=== PATIENT | male | born 1940 | race Caucasian/White ===

== ENCOUNTER 2019-05-30 14:57 | Emergency (ER) | payer MEDICARE ==
[~2019-05-30] VITALS: Ht 167.6 cm; Wt 72.7 kg
[~2019-05-30 14:57] MED LIST: ALBU8.5H8 INH; ASPI-612 PO; DOCU100C40 PO; LOSA25TA96 PO; METO25TA6 PO; ROSU40TA PO; TAMS0.4C32 PO
--- NOTE | 2019-05-30 15:09 | NUR ---
Pt currently wearing Holter Monitor through Dr. Mckeon's office; being evaluated for bradycardia.
[2019-05-30] MEDS ORDERED: AMLO-93 PO (15:13)
[2019-05-30] MEDS ORDERED: LOSA50TA3 PO (15:13)
[2019-05-30 15:39] LABS: BASOPHILS % (AUTO) 0.5 % (0-1); EOSINOPHILS # (AUTO) 0.2 X10'3 (0-0.9); EOSINOPHILS % (AUTO) 3.2 % (0-6); HEMATOCRIT 44.2 % (42.0-52.0); HEMOGLOBIN 14.5 g/dl (14.0-17.9); LYMPHOCYTES # (AUTO) 1.7 X10'3 (1.1-4.8); LYMPHOCYTES % (AUTO) 27.6 % (21-51); MEAN CORPUSCULAR HEMOGLOBIN 31.2 PG (27.0-31.0); MEAN CORPUSCULAR HGB CONC 32.9 g/dL (33.0-36.5); MEAN CORPUSCULAR VOLUME 94.6 FL (78-98); MEAN PLATELET VOLUME 7.8 FL (7.4-10.4); MONOCYTES # (AUTO) 0.6 X10'3 (0-0.9); MONOCYTES % (AUTO) 9.7 % (2-12); NEUTROPHILS # (AUTO) 3.6 X10'3 (1.8-7.7); PLATELET COUNT 264 X10'3 (140-440); RED BLOOD COUNT 4.67 X10'6 (4.70-6.10); RED CELL DISTRIBUTION WIDTH 13.7 % (11.5-14.5); WHITE BLOOD COUNT 6.1 X10'3 (4.5-11.0)
[2019-05-30 16:00] LABS: ALANINE AMINOTRANSFERASE 17 U/L (12-78); ALBUMIN 3.2 G/DL (3.4-5.0); ALKALINE PHOSPHATASE 71 IU/L (46-116); ANION GAP 8 (8-16); ASPARTATE AMINO TRANSFERASE 30 U/L (10-37); BILIRUBIN,TOTAL 0.3 MG/DL (0.1-1.0); BLOOD UREA NITROGEN 18 MG/DL (7-18); BUN/CREATININE RATIO 15.8 (5.4-32.0); CALCIUM 8.1 MG/DL (8.5-10.1); CHLORIDE 112 MMOL/L (99-107); CREATININE 1.14 MG/DL (0.60-1.10); GLUCOSE 111 MG/DL (70-104); POTASSIUM 4.4 MMOL/L (3.5-5.1); SODIUM 144 MMOL/L (135-145); TOTAL CARBON DIOXIDE 24.2 MMOL/L (24-32); TOTAL PROTEIN 6.4 G/DL (6.4-8.2); eGFR 62 ML/MIN
[2019-05-30 16:10] LABS: TROPONIN I < 0.04 NG/ML (0.0-0.05)
--- NOTE | 2019-05-30 16:10 | NUR ---
relieving RN for break, pt is resting quietly on family missael at bedside
[2019-05-30 16:44] VITALS: BP 109/61
== END 2019-05-30 16:45 | disposition home or self-care (01) ==
LOC: ER 14:58
DX: R55 Syncope and collapse (principal); R42 Dizziness and giddiness; R61 Generalized hyperhidrosis; I25.10 Atherosclerotic heart disease of native coronary artery without angina pectoris; I10 Essential (primary) hypertension; J44.9 Chronic obstructive pulmonary disease, unspecified; K21.9 Gastro-esophageal reflux disease without esophagitis; Z87.442 Personal history of urinary calculi; Z95.1 Presence of aortocoronary bypass graft; Z79.82 Long term (current) use of aspirin; Z79.899 Other long term (current) drug therapy
CPT/HCPCS: 36415; 80053; 84443; 84484; 85025; 93005; 99284

== ENCOUNTER 2019-08-14 18:47 | Emergency (ER) | payer MEDICARE ==
[~2019-08-14] VITALS: Ht 167.6 cm; Wt 61.8 kg
[~2019-08-14 18:47] MED LIST changes: +AMLO-93 PO; +LIDOcaine 1% W/epiNEPHrine 1:100,000 20ml vial ONE; +LOSA50TA3 PO
[2019-08-14 19:20] VITALS: BP 167/87
[2019-08-14] MEDS ORDERED: CEPH500C5 PO (20:49)
[2019-08-14] MEDS ORDERED: TETanus/Pertussis (Acell)/Diphther VAC/PF (Tdap-Adult) 0.5ml syringe IMVAC ONE (21:10)
== END 2019-08-14 21:46 | disposition home or self-care (01) ==
LOC: ER 18:48
DX: L03.012 Cellulitis of left finger (principal); I25.10 Atherosclerotic heart disease of native coronary artery without angina pectoris; I10 Essential (primary) hypertension; J44.9 Chronic obstructive pulmonary disease, unspecified; K21.9 Gastro-esophageal reflux disease without esophagitis; Z87.442 Personal history of urinary calculi; Z79.899 Other long term (current) drug therapy; Z79.82 Long term (current) use of aspirin; Z79.2 Long term (current) use of antibiotics
CPT/HCPCS: 10060; 90471; 99284

== ENCOUNTER 2020-04-22 09:42 | Emergency (ER) | payer MEDICARE ==
[~2020-04-22] VITALS: Ht 167.6 cm; Wt 73.0 kg
[~2020-04-22 09:42] MED LIST changes: -LIDOcaine 1% W/epiNEPHrine 1:100,000 20ml vial ONE
[2020-04-22] MEDS ORDERED: LIDOcaine 1% W/epiNEPHrine 1:200,000 10ml vial IJ ONE (09:55)
[2020-04-22] MEDS ORDERED: TETanus/Pertussis (Acell)/Diphther VAC/PF (Tdap-Adult) 0.5ml syringe IMVAC ONE (09:55)
--- NOTE | 2020-04-22 10:06 | NUR ---
pt to ct
[2020-04-22 10:17] LABS: BASOPHILS # (AUTO) 0.1 X10'3 (0-0.2); BASOPHILS % (AUTO) 1.1 % (0-1); EOSINOPHILS % (AUTO) 0.8 % (0-6); HEMATOCRIT 45.6 % (42.0-52.0); HEMOGLOBIN 15.2 g/dl (14.0-17.9); LYMPHOCYTES # (AUTO) 1.1 X10'3 (1.1-4.8); LYMPHOCYTES % (AUTO) 23.1 % (21-51); MEAN CORPUSCULAR HEMOGLOBIN 31.7 PG (27.0-31.0); MEAN CORPUSCULAR HGB CONC 33.4 g/dL (33.0-36.5); MEAN CORPUSCULAR VOLUME 94.8 FL (78-98); MEAN PLATELET VOLUME 7.9 FL (7.4-10.4); MONOCYTES # (AUTO) 0.6 X10'3 (0-0.9); MONOCYTES % (AUTO) 11.5 % (2-12); NEUTROPHILS # (AUTO) 3.1 X10'3 (1.8-7.7); NEUTROPHILS % (AUTO) 63.5 % (42-75); PLATELET COUNT 263 X10'3 (140-440); RED BLOOD COUNT 4.81 X10'6 (4.70-6.10); RED CELL DISTRIBUTION WIDTH 14.2 % (11.5-14.5); WHITE BLOOD COUNT 4.9 X10'3 (4.5-11.0)
[2020-04-22 10:22] LABS: ALANINE AMINOTRANSFERASE 22 U/L (12-78); ALBUMIN 3.4 G/DL (3.4-5.0); ALKALINE PHOSPHATASE 68 IU/L (46-116); ANION GAP 6 (8-16); ASPARTATE AMINO TRANSFERASE 14 U/L (10-37); BILIRUBIN,TOTAL 0.4 MG/DL (0.1-1.0); BLOOD UREA NITROGEN 22 MG/DL (7-18); BUN/CREATININE RATIO 17.2 (5.4-32.0); CALCIUM 8.7 MG/DL (8.5-10.1); CHLORIDE 108 MMOL/L (99-107); CREATININE 1.28 MG/DL (0.60-1.10); GLUCOSE 96 MG/DL (70-104); PARTIAL THROMBOPLASTIN TIME 29 SECONDS (22-32); POTASSIUM 4.2 MMOL/L (3.5-5.1); SODIUM 141 MMOL/L (135-145); TOTAL CARBON DIOXIDE 27.3 MMOL/L (24-32); TOTAL PROTEIN 6.8 G/DL (6.4-8.2); eGFR 54 ML/MIN
[2020-04-22 11:26] VITALS: BP 131/76
== END 2020-04-22 11:27 | disposition home or self-care (01) ==
LOC: ER 09:42
DX: S01.01XA Laceration without foreign body of scalp, initial encounter (principal); S09.90XA Unspecified injury of head, initial encounter; I25.10 Atherosclerotic heart disease of native coronary artery without angina pectoris; I10 Essential (primary) hypertension; J44.9 Chronic obstructive pulmonary disease, unspecified; K21.9 Gastro-esophageal reflux disease without esophagitis; Z98.61 Coronary angioplasty status; Z88.8 Allergy status to other drugs, medicaments and biological substances; Z79.899 Other long term (current) drug therapy; Z79.82 Long term (current) use of aspirin; W45.8XXA Other foreign body or object entering through skin, initial encounter; Y93.89 Activity, other specified; Y92.513 Shop (commercial) as the place of occurrence of the external cause; Y99.8 Other external cause status
CPT/HCPCS: 12002; 12004; 36415; 70450; 80053; 82948; 85025; 85610; 85730; 93005; 99285

== ENCOUNTER 2021-05-22 09:57 | Emergency (ER) | payer MEDICARE ==
[~2021-05-22] VITALS: Ht 167.6 cm; Wt 63.0 kg
[~2021-05-22 09:57] MED LIST changes: +ALBU8.5H17 INH; -ALBU8.5H8 INH; +LOP25T PO; -METO25TA6 PO
[2021-05-22] MEDS ORDERED: normal saline 1000ML IV soln IVB ONE (17:00)
[2021-05-22] MEDS ORDERED: morphine 4 MG/ML inj SYRINge IV ONE ×4 (17:00→21:45)
[2021-05-22] MEDS ORDERED: ondansetron/PF 4mg/2ml inj IV ONE ×2 (17:00→17:15)
[2021-05-22 17:22] LABS: BASOPHILS % (AUTO) 0.2 % (0-1); EOSINOPHILS % (AUTO) 0 % (0-6); HEMOGLOBIN 15.1 g/dl (14.0-17.9); LYMPHOCYTES # (AUTO) 0.5 X10'3 (1.1-4.8); LYMPHOCYTES % (AUTO) 3.5 % (21-51); MEAN CORPUSCULAR HEMOGLOBIN 30.8 PG (27.0-31.0); MEAN CORPUSCULAR HGB CONC 32.9 g/dL (33.0-36.5); MEAN CORPUSCULAR VOLUME 93.7 FL (78-98); MEAN PLATELET VOLUME 8.2 FL (7.4-10.4); MONOCYTES # (AUTO) 0.7 X10'3 (0-0.9); MONOCYTES % (AUTO) 4.6 % (2-12); NEUTROPHILS # (AUTO) 13.6 X10'3 (1.8-7.7); NEUTROPHILS % (AUTO) 91.7 % (42-75); PLATELET COUNT 297 X10'3 (140-440); RED BLOOD COUNT 4.91 X10'6 (4.70-6.10); RED CELL DISTRIBUTION WIDTH 13.6 % (11.5-14.5); WHITE BLOOD COUNT 14.8 X10'3 (4.5-11.0)
[2021-05-22 17:43] LABS: ALANINE AMINOTRANSFERASE 24 U/L (12-78); ALBUMIN 3.7 G/DL (3.4-5.0); ALKALINE PHOSPHATASE 83 IU/L (46-116); ANION GAP 11 (8-16); ASPARTATE AMINO TRANSFERASE 17 U/L (10-37); BILIRUBIN,TOTAL 0.5 MG/DL (0.1-1.0); BLOOD UREA NITROGEN 23 MG/DL (7-18); BUN/CREATININE RATIO 14.2 (5.4-32.0); CALCIUM 8.6 MG/DL (8.5-10.1); CHLORIDE 107 MMOL/L (99-107); CREATININE 1.62 MG/DL (0.60-1.10); GLUCOSE 134 MG/DL (70-104); POTASSIUM 4.6 MMOL/L (3.5-5.1); SODIUM 140 MMOL/L (135-145); TOTAL CARBON DIOXIDE 22.2 MMOL/L (24-32); TOTAL PROTEIN 7.4 G/DL (6.4-8.2); eGFR 41 ML/MIN
[2021-05-22] MEDS ORDERED: acetaminophen 1,000mg/100ml IV 100 ML IV ONE (18:35)
[2021-05-22] MEDS ORDERED: acetaminophen 1,000mg/100ml IV 100 ML IV SCH (20:00)
--- NOTE | 2021-05-22 21:45 | NUR ---
NOTIFIED Aurelio LEE THAT PT HAD MORPHINE BEFORE AND WAS NOT EFFECTIVE JONAH IF WE CAN HAVE ANOTHER ORDERS FOR PAIN MEDS.
[2021-05-22] MEDS ORDERED: HYDROmorphone inj. 0.5 MG/0.5 ML DISP.SYRIN IV ONE (21:50)
[2021-05-22] MEDS ORDERED: HYDR-3965 PO (22:00)
[2021-05-22] MEDS ORDERED: FLO0.4C PO (22:00)
--- NOTE | 2021-05-22 22:21 | NUR ---
PT MEDICATED WIUTH DILAUDID INSTEAD OF MORPHINE IT WAS NOT HELPING THE PT ,LAURA GREENBERG HELPING WITH THE PT.
[2021-05-22 23:24] LABS: CLARITY,URINE CLEAR (Clear); COLOR,URINE YELLOW (Yellow); GLUCOSE, URINE NEGATIVE (Neg); KETONES,URINE NEGATIVE (Neg); PROTEIN,URINE NEGATIVE (Neg); UA COLLECTION TYPE CLN CATCH MIDSTREAM
[2021-05-22 23:25] LABS: LEUKOCYTE ESTERASE ,URINE NEGATIVE (Neg); NITRITES, URINE NEGATIVE (Neg); OCCULT BLOOD,URINE LARGE (Neg); UROBILINOGEN,URINE 0.2 E.U/dL (0.2-1.0)
[2021-05-22 23:28] LABS: BACTERIA,URINE NONE SEEN /HPF (Neg); MUCUS STRANDS FEW /LPF (Neg); SQUAMOUS EPITHELIAL CELL,UR FEW /LPF (FEW); WBC,URINE 0-4 /HPF (0-4)
[2021-05-23] MEDS ORDERED: HYDROmorphone 1 mg/ml syringe IV ONE
[2021-05-23 00:47] VITALS: BP 154/88
[2021-05-25] MEDS ORDERED: LOSA100T57 PO (02:16)
[2021-05-25] MEDS ORDERED: FLO0.4C PO (02:19)
[2021-05-25] MEDS ORDERED: ROSU40TA22 PO (02:22)
[2021-05-25] MEDS ORDERED: RIVA20TA PO (02:24)
[2021-05-25] MEDS ORDERED: METO50TA16 PO (02:25)
[2021-05-25] MEDS ORDERED: HYDR-3964 PO (02:27)
[2021-05-25] MEDS ORDERED: DOCU100C40 PO (02:29)
[2021-05-25] MEDS ORDERED: VITA400T10 PO (02:30)
[2021-05-25] MEDS ORDERED: CHOL100025 PO (02:32)
[2021-05-25] MEDS ORDERED: ESOM40CA54 PO (02:36)
[2021-05-25] MEDS ORDERED: LORA10TA7 PO (02:38)
[2021-05-25] MEDS ORDERED: LACT1CAP75 PO (02:39)
[2021-05-25] MEDS ORDERED: AMLO5TAB16 PO (02:42)
[2021-05-25] MEDS ORDERED: SILD20TA2 PO (02:43)
[2021-05-26] MEDS ORDERED: DILT120C19 PO (12:40)
[2021-05-26] MEDS ORDERED: LOSA50TA3 PO (13:09)
[2021-05-26] MEDS ORDERED: METO50TA16 PO (13:09)
== END 2021-05-23 00:49 | disposition home or self-care (01) ==
LOC: ER 09:58
DX: N23 Unspecified renal colic (principal); R11.2 Nausea with vomiting, unspecified; R31.9 Hematuria, unspecified; I25.10 Atherosclerotic heart disease of native coronary artery without angina pectoris; I10 Essential (primary) hypertension; J44.9 Chronic obstructive pulmonary disease, unspecified; K21.9 Gastro-esophageal reflux disease without esophagitis; Z87.442 Personal history of urinary calculi; Z95.0 Presence of cardiac pacemaker; Z98.890 Other specified postprocedural states; Z79.82 Long term (current) use of aspirin; Z79.899 Other long term (current) drug therapy
CPT/HCPCS: 96361; 96374; 96375; 96376; 99285; J0131; J1170; J2270; J2405; J7030; 36415; 74176; 80053; 81001; 85025

== ENCOUNTER 2022-09-22 21:29 | Emergency (ER) | payer MEDICARE ==
[~2022-09-22] VITALS: Ht 167.6 cm; Wt 75.0 kg
[~2022-09-22 21:29] MED LIST changes: -ALBU8.5H17 INH; -AMLO-93 PO; -ASPI-612 PO; +CHOL100025 PO; +DILT120C19 PO; +ESOM40CA54 PO; +FLO0.4C PO; +HYDR-3964 PO; +LACT1CAP75 PO; -LOP25T PO; -LOSA25TA96 PO; -LOSA50TA3 PO; +RIVA20TA PO; -TAMS0.4C32 PO; +VITA400T10 PO
[2022-09-22 21:55] VITALS: BP 131/89
== END 2022-09-23 02:26 | disposition left against medical advice (07) ==
LOC: ER 21:30
DX: S41.119A Laceration without foreign body of unspecified upper arm, initial encounter (principal); Z53.21 Procedure and treatment not carried out due to patient leaving prior to being seen by health care provider; X58.XXXA Exposure to other specified factors, initial encounter; Y93.89 Activity, other specified; Y92.89 Other specified places as the place of occurrence of the external cause; Y99.8 Other external cause status

== ENCOUNTER 2023-05-30 13:28 | Emergency (ER) | payer MEDICARE ==
[~2023-05-30] VITALS: Ht 168.9 cm; Wt 76.8 kg
[2023-05-30 13:48] VITALS: BP 129/79; PULSE 70; RESP 18; TEMP 98.4; O2SAT 98
[2023-05-30 16:07] LABS: BASOPHILS % (AUTO) 0.5 % (0-1); EOSINOPHILS # (AUTO) 0.2 X10'3 (0-0.9); EOSINOPHILS % (AUTO) 3.7 % (0-6); HEMATOCRIT 44.1 % (42.0-52.0); HEMOGLOBIN 14.7 g/dl (14.0-17.9); LYMPHOCYTES # (AUTO) 1.5 X10'3 (1.1-4.8); LYMPHOCYTES % (AUTO) 25.1 % (21-51); MEAN CORPUSCULAR HEMOGLOBIN 31.3 PG (27.0-31.0); MEAN CORPUSCULAR HGB CONC 33.3 g/dL (33.0-36.5); MEAN CORPUSCULAR VOLUME 94.2 FL (78-98); MEAN PLATELET VOLUME 7.4 FL (7.4-10.4); MONOCYTES # (AUTO) 0.6 X10'3 (0-0.9); MONOCYTES % (AUTO) 10.7 % (2-12); NEUTROPHILS # (AUTO) 3.5 X10'3 (1.8-7.7); PLATELET COUNT 256 X10'3 (140-440); RED BLOOD COUNT 4.68 X10'6 (4.70-6.10); RED CELL DISTRIBUTION WIDTH 14.5 % (11.5-14.5); WHITE BLOOD COUNT 5.9 X10'3 (4.5-11.0)
[2023-05-30 16:22] LABS: ALANINE AMINOTRANSFERASE 21 U/L (12-78); ALBUMIN 3.2 G/DL (3.4-5.0); ALBUMIN/GLOBULIN RATIO 0.9 (1.1-1.5); ALKALINE PHOSPHATASE 66 IU/L (46-116); ANION GAP 6 (8-16); ASPARTATE AMINO TRANSFERASE 15 U/L (10-37); BILIRUBIN,TOTAL 0.3 MG/DL (0.1-1.0); BLOOD UREA NITROGEN 27 MG/DL (7-18); BUN/CREATININE RATIO 24.1 (10.0-20.0); CALCIUM 8.5 MG/DL (8.5-10.1); CHLORIDE 106 MMOL/L (99-107); CREATININE 1.12 MG/DL (0.60-1.10); GLUCOSE 99 MG/DL (70-104); POTASSIUM 4.6 MMOL/L (3.5-5.1); SODIUM 138 MMOL/L (135-145); TOTAL CARBON DIOXIDE 26.2 MMOL/L (24-32); TOTAL PROTEIN 6.7 G/DL (6.4-8.2); eCRCL 45 ML/MIN; eGFR 62 ML/MIN
[2023-05-30] MEDS ORDERED: ketorolac tromethamine 15mg/ml inj. IM ONE (17:10)
== END 2023-05-30 17:40 | disposition home or self-care (01) ==
LOC: ER 13:29
DX: G43.909 Migraine, unspecified, not intractable, without status migrainosus (principal); E78.00 Pure hypercholesterolemia, unspecified; I10 Essential (primary) hypertension; J44.9 Chronic obstructive pulmonary disease, unspecified; K21.9 Gastro-esophageal reflux disease without esophagitis; Z79.899 Other long term (current) drug therapy
CPT/HCPCS: 36415; 80053; 85025; 85651; 96372; 99284; J1885

== ENCOUNTER 2023-05-30 20:19 | Emergency (ER) | payer MEDICARE ==
[~2023-05-30] VITALS: Ht 170.2 cm; Wt 72.7 kg
[2023-05-30 20:24] VITALS: TEMP 97.9
[2023-05-30] MEDS ORDERED: diphenhydrAMINE 25 MG/10 ML UD oral solution PO ONE (21:00)
[2023-05-30] MEDS ORDERED: dexamethasone 4mg tablet PO ONE (21:00)
[2023-05-30] MEDS ORDERED: famotidine 20mg tablet PO ONE (22:20)
[2023-05-30 22:42] VITALS: BP 99/69; PULSE 61; RESP 16; O2SAT 94
== END 2023-05-30 22:45 | disposition home or self-care (01) ==
LOC: ER 20:20
DX: R22.9 Localized swelling, mass and lump, unspecified (principal); T39.8X5A Adverse effect of other nonopioid analgesics and antipyretics, not elsewhere classified, initial encounter; G43.909 Migraine, unspecified, not intractable, without status migrainosus; E78.00 Pure hypercholesterolemia, unspecified; I10 Essential (primary) hypertension; J44.9 Chronic obstructive pulmonary disease, unspecified; K21.9 Gastro-esophageal reflux disease without esophagitis; N20.0 Calculus of kidney; Z79.899 Other long term (current) drug therapy; Y92.89 Other specified places as the place of occurrence of the external cause
CPT/HCPCS: 93005; 99284; Q0163